=== PATIENT | male | born 1965 | race Two or more races ===

== ENCOUNTER 2022-06-27 10:49 | Emergency (ER) | payer OTHER ==
[~2022-06-27] VITALS: Ht 182.9 cm; Wt 104.3 kg
[2022-06-27] MEDS ORDERED: METFORMIN HCL1000 MG (11:01)
[2022-06-27] MEDS ORDERED: ZESTRIL10 M1 PO (14:36)
[2022-06-27] MEDS ORDERED: METFORMIN HCL1000 M3 PO (14:37)
== END 2022-06-27 14:42 | disposition home or self-care (01) ==
LOC: ER 10:49
DX: E11.65 Type 2 diabetes mellitus with hyperglycemia (principal); Z79.84 Long term (current) use of oral hypoglycemic drugs; I10 Essential (primary) hypertension